=== PATIENT | female | born 2000 | race African-American/Black ===

== ENCOUNTER 2021-06-20 14:05 | Outpatient (REF) | payer BC, SELFPAY ==
--- NOTE | ~2021-06-20 | US_ITS ---
EXAMINATION: US CHEST CLINICAL INFORMATION: Upper lateral chest contusion or lump COMPARISON: None TECHNIQUE: Ultrasound of the left upper lateral chest near the axilla. Comparison imaging on the right was performed. FINDINGS: Palpable abnormality corresponds to multiple clustered enlarged lymph nodes. Largest lymph node measures 3.1 x 1.3 x 3 cm. Some lymph nodes demonstrate abnormal architecture with cortical thickening and slitlike hilum. Some lymph nodes demonstrate abnormal cortical flow. No right-sided adenopathy is seen. US/US chest IMPRESSION: Palpable abnormality corresponds to multiple enlarged abnormal appearing lymph nodes. This would be amenable to ultrasound-guided biopsy
== END 2021-06-20 14:06 | disposition home or self-care (01) ==
LOC: HO.HMGCX 14:05
PROVIDERS: Visit Provider Nurse Practitioner Family
DX: R22.2 Localized swelling, mass and lump, trunk (principal); S40.012A Contusion of left shoulder, initial encounter; X58.XXXA Exposure to other specified factors, initial encounter; Y93.9 Activity, unspecified; Y92.9 Unspecified place or not applicable; Y99.9 Unspecified external cause status
CPT/HCPCS: 76604

== ENCOUNTER 2021-07-05 11:13 | Outpatient (REF) | payer BC, SELFPAY ==
--- NOTE | ~2021-07-05 | US_ITS ---
PROCEDURE: ULTRASOUND-GUIDED CORE BIOPSY LEFT AXILLARY LYMPHADENOPATHY CLINICAL INFORMATION: Left axillary lymphadenopathy. COMPARISON: 06/20/2021 TECHNIQUE: Ultrasound-guided core biopsy left axillary lymph nodes. FINDINGS: Informed consent was obtained from the patient prior to the procedure. During this process, the procedure and potential alternatives were explained, along with the intended outcome and benefits. The risks of the procedure, as well as the risk of not doing the procedure, were discussed. The patient was given the opportunity to ask questions regarding the procedure and appeared competent to make medical decisions. A signed consent form which documents this discussion was placed in the medical record. Using sterile technique and ultrasound guidance a 17-gauge guiding needle was directed to two abnormal enlarged axillary lymph nodes without definite fatty clefts. A total of eight 18-gauge core biopsies were obtained with sample sent in fluid for flow cytometry as well as regular pathology. Patient tolerated procedure without difficulty. US/US biopsy lymph node IMPRESSION: Successful core biopsy left axillary lymph nodes with ultrasound guidance.
[2021-07-05] MEDS: Lidocaine HCl 1 % MPF 5 ML VIAL SUBCUT (12:29)
== END 2021-07-05 11:14 | disposition home or self-care (01) ==
LOC: HO.US 11:13
PROVIDERS: Radiology Diagnostic Radiology; Visit Provider Nurse Practitioner Family
DX: R59.0 Localized enlarged lymph nodes (principal)
CPT/HCPCS: 36415; 38505; 76942; 88184; 88185; 88300; 88305